=== PATIENT | male | born 1985 | race Caucasian/White ===

== ENCOUNTER 2021-11-28 20:01 | Emergency (ER) | payer BC, SELFPAY ==
[2021-11-28 20:18] VITALS: BP 141/88; PULSE 95; RESP 16; TEMP 37.2; O2SAT 95; BMI 35.3
--- NOTE | 2021-11-28 20:34 | ED_ITS ---
HPI - General Adult General Chief complaint: Neck Injury/Pain Stated complaint: Sharp neck pain Time Seen by Provider: 11/28/21 20:21 History of Present Illness HPI narrative: Pt who 10 days ago had cervical fusion of C6/7 woke from a nap with increased stiffness in both his neck and his hip bone harvest site. No fever or chills, swelling or discharge from the wounds. Pt has had no injury and has no further neurological symptoms. 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 No other symptoms. Pt has been wearing his neck collar without any problems. Pain is 3/10 which is now typical post operatively. Related Data Home Medications Medication Instructions Recorded Confirmed acetaminophen 500 mg tablet mg 11/28/21 dextroamphetamine-amphetamine ER PO 11/28/21 10 mg 24hr capsule,extend release (Adderall XR) escitalopram oxalate 20 mg tablet mg 11/28/21 methocarbamol 750 mg tablet mg 11/28/21 oxycodone 10 mg tablet mg 11/28/21 Allergies Allergy/AdvReac Type Severity Reaction Status Date / Time penicillin V Allergy Verified 11/28/21 20:22 Review of Systems Status of ROS: Reports: 10 or more systems reviewed and unremarkable except as noted in History and below [facility] Social History Smoking Status: Never smoker Do you use any of these nicotine containing products: None How often do you have a drink containing alcohol: never How often do you have six or more drinks on one occasion: Never AUDIT-C Alcohol total score: 0 Non-prescribed substance use: denies use Exam Narrative: Exam Narrative: EXAM GENERAL: Patient appears comfortable and well. Patient is wearing a [place] collar. Examination of his neck showed approximation. No obvious swelling no deformities of the neck. Exam incision site in the groin where the pelvic bone was partially harvested shows no signs of infection good wound approximation. EYES: No scleral icterus. THYROID: no thyroid nodules or thyromegaly. LYMPH: No supraclavicular or cervical lymphadenopathy. SKIN: Visible skin seen during exam normal or with benign process only. EXT: No dependent lower extremity pedal edema. HEART: Regular rate and rhythm with no murmurs, rubs, or gallops. LUNGS: Clear to auscultation bilaterally with no crackles or wheezes. ABD: Soft, non tender, non distended. PSYCH: Good eye contact, speech is not pressured. Neuro: CRANIAL NERVES 2-12 GROSSLY INTACT NO FOCAL DEFECTS Const: Vital Signs, click to edit/add: Vital Signs - 24 hr 11/28/21 20:18 Temperature 99.0 F Pulse Rate [Left P ulse Oximeter] 95 Respiratory Rate 16 Blood Pressure [Ri ght Upper Arm] 141/88 H Pulse Oximetry 95 Oxygen Delivery Me thod Room Air Course Course Hospital Course: Pt seen and examined Vital Signs Vital signs: Initial Vital Signs Temperature 99.0 F 11/28/21 20:18 Temperature Source Temporal Artery Scan 11/28/21 20:18 Pulse Rate 95 11/28/21 20:18 Pulse Rhythm 11/28/21 20:18 Pulse Strength 3+ Normal 11/28/21 20:18 Respiratory Rate 16 11/28/21 20:18 Blood Pressure 141/88 H 11/28/21 20:18 Blood Pressure Mean 105 11/28/21 20:18 Blood Pressure Position Sitting 11/28/21 20:18 Pulse Oximetry 95 11/28/21 20:18 Oxygen Delivery Method 11/28/21 20:18 Vital Signs Temperature 99.0 F 11/28/21 20:18 Pulse Rate 95 11/28/21 20:18 Respiratory Rate 16 11/28/21 20:18 Blood Pressure 141/88 H 11/28/21 20:18 Pulse Oximetry 95 11/28/21 20:18 Oxygen Delivery Method 11/28/21 20:18 Temperature 99.0 F 11/28/21 20:18 Pulse Rate 95 11/28/21 20:18 Respiratory Rate 16 11/28/21 20:18 Blood Pressure 141/88 H 11/28/21 20:18 Pulse Oximetry 95 11/28/21 20:18 Oxygen Delivery Method 11/28/21 20:18 Medical Decision Making [facility] Narrative Medical decision making narrative: Pt is a reasonably healthy 36 year old gentleman who had cervical fusion 10 days ago. Pt felt increased stiffness after his nap both in his neck and in the left groin harvest site. Pt now feeling better. No injury. No signs of infection. Pt would like to be reassured and discharged to continue his home medications. I do think that this is reasonable as his vitals and exam are unremarkable. Pt will follow up with surgeon per schedule. Discharge Plan Discharge Clinical Impression: Strain of neck muscle Patient Disposition: Home, Self-Care Condition: Stable Additional Instructions: Continue current care Follow up as needed Activity Level: No Restrictions Discharge Diet: Regular Prescriptions: No Action acetaminophen 500 mg tablet methocarbamol 750 mg tablet dextroamphetamine-amphetamine [Adderall XR] 10 mg capsule,extended release 24hr PO Label Comments: TAKE 1 CAPSULE BY MOUTH TWICE DAILY DIRECTED escitalopram oxalate 20 mg tablet Label Comments: TAKE 1 TABLET BY MOUTH EVERY DAY oxycodone 10 mg tablet Stand Alone Forms: [employer] Info Instructions
--- OUTSIDE RECORDS SUMMARY | 2021-11-28 20:59 | XMS_ITS | Clinical Summary ---
:1985 Author Organization [facility] [place] [address] Care Team Providers Name Role Phone Joya Bailey DO Primary Care Provider Allergies Active Allergy Reactions Severity Noted Date Comments Penicillins *Unknown - Childhood Rxn 08/30/2013 Medications Medication Sig Dispensed Refills Start End Status Date Date Adderall XR 10 mg Take 10 mg by 0 08/02/19 Active Extended-Release mouth two times 22 capsule daily. escitalopram oxalate Take 20 mg by 0 11/02/19 Active (LEXAPRO) 20 mg mouth once 22 tablet daily. acetaminophen Take 2 Tablets 112 Tablet 0 11/19/19 Active (TYLENOL EXTRA (1,000 mg) by 22 022 STRGTH) 500 mg mouth every 6 tabletIndications: hours for 14 S/P cervical spinal days. Max fusion acetaminophen dose: 4000mg in 24 hrs. methocarbamoL Take 1 Tablet 30 Tablet 0 11/19/19 Ac tive (ROBAXIN) 750 mg (750 mg) by 22 tabletIndications: mouth every 6 S/P cervical spinal hours if needed fusion for Muscle Spasm. oxyCODONE 10 mg Take 1 Tablet 25 Tablet 0 11/19/19 Active tabletIndications: (10 mg) by mouth 22 S/P cervical spinal every 4 hours if fusion needed for Pain. sennosides-docusate Take 1-4 Tablets 112 Tablet 0 11/19/19 Active (SENOKOT S) (8.6-50 by mouth 2 times 22 022 mg) daily if needed tabletIndications: for Constipation S/P cervical spinal for up to 14 fusion days. miscellaneous medical As directed 1 1 Each 0 11/19/19 Active supply Each. 1 television production technician 22 miscIndications: for home use for Cervical 12 months radiculopathy miscellaneous medical As directed 1 1 Each 0 11/19/19 Active supply Each. 1 toilet 22 miscIndications: tongs for home Cervical use for 12 radiculopathy months tiZANidine (ZANAFLEX) TAKE 1 TABLET BY 60 Tablet 0 08/13/19 1 Discontinued 4 mg MOUTH EVERY 6-8 (Pha rmacist tabletIndications: HOURS NEEDED change per Cervical radicular FOR MUSCLE medication pain SPASM. MAXIMUM histo ry DAILY DOSE IS 3 (E-c ancel not TABLETS sent)) escitalopram oxalate Take 10 mg by 0 07/03/1911/07 Discontinued (LEXAPRO) 10 mg mouth once (*M edication tablet daily. adjustment ) escitalopram oxalate Take 5 mg by 0 07/03/19 Discontinued (LEXAPRO) 5 mg tablet mouth one time. 01 04 2 (*Medication adjustment ) dextroamphetamine-amp Take 10 mg by 0 08/01/1910/11 02 Discontinued hetamine (ADDERALL) mouth once (*Med 10 mg tablet daily. complet e/Regim en complete/L evel of care change) methylPREDNISolone Take by mouth as 21 Tablet 0 09/16/1911/082 Discontinued (Medrol, Dave,) 4 mg instructed per (Pharmacist tabletIndications: packaging. change per Neck pain, acute med ication history (E-cancel not sent)) meloxicam 15 mg Take 1 Tablet 30 Tablet 0 10/08/19 Discontinued tabletIndications: (15 mg) by mouth 022 Cervical once daily. radiculopathy meloxicam 15 mg TAKE 1 TABLET(15 30 Tablet 0 11/12/19 Discontinued tabletIndications: MG) BY MOUTH (Pharmacist Cervical EVERY DAY change per radiculopathy medica tion history (E-cancel not sent)) Active Problems Problem Noted Date Cervical radiculopathy 11/17/2021 PTSD (post-traumatic stress disorder) 07/12/2019 Radicular pain in right arm 06/02/2018 Herniation of intervertebral disc at C5-C6 level 06/02 Attention deficit hyperactivity disorder (ADHD) 2016 Overview: Evaluation by Dr Szymanski 01/2016 Tobacco dependence 11/02/2013 Anxiety 09/14/2013 Depression 09/14/2013 Encounters Date Type Specialty Care Team Description 11/19/2021 Patient Outreach Carri Miles Primary RN Care L, RN Management; Hos pital F/U (Lace=37) 11/18/2021 Travel 11/17/2021 Anesthesia Event Lalita Cline, CELLOPHANER 11/17/2021 Surgery Colbean Marin, ACDF - ANTE RIOR Solo Medina MD CERVICAL DE COMPRESSION FUSION C6 - C7; ICBG HARVEST - ILIAC CREST BONE GRAFT HARV EST 11/17/2021 - Hospital Encounter Marissa Marin, S/P c ervical spinal fusion (Primary Dx); 11/18/2021 Solo Medina MD Cervical ra diculopathy Discharge Summary - Jocelin Downs MD - 11/18/2021 1:09 PM CDT Images from the original not e were not included. HOSPITAL DISCHARGE SUMMARY Patient Name: Aaron Salgado and Date of : 1985 Age : 36 y.o. [id number] Primary Physician: Joya Bailey DO Admission Date: 11/17/2021 Discharge Date: 11/18/2021 Mr. Aaron Butterfield is a 1 8 y.o. who underwent ACDF - ANTERIOR CERVICAL DECOMPRESSION FUSION C6 - C7; ICBG HARVEST - ILIAC CREST BONE GRAFT HARVEST on 11/17/[address] Marissa Marin, Solo Medina MD; anesthesia General, EBL (not recorded), OR time 4 Hr 41 Min 48 Sec with no immediate complications. He will be discharged from [facility] to home. PRINCIPAL DIAGNOSIS CAUSING ADMISSION: Disorder of intervertebral disc at C4-C5 level with radiculopathy [M50.121] DISCHARGE MEDICATIONS Your Home Medicines KEEP taking these medicines which have NOT changed and were NOT talked about during your hospital visit. If you have questions about these medicines, please make an appointment with your regular health care provider or specialist. Instructions Adderall XR 10 mg Extended-R elease capsule Generic drug: dextroamphetam ine-amphetamine Take 10 mg by mouth two giovanny es daily. escitalopram oxalate 20 mg t ablet Commonly known as: LEXAPRO Take 20 mg by mouth once da kanchan. FOLLOW-UP: He should return to [facility] in 6 weeks or as scheduled. Additional followup: NA BRIEF HOSPITAL COURSE: This 36 y.o. male was admitted to the fan s.p. Procedure(s): ACDF - ANTERIOR CERVICAL DEC OMPRESSION FUSION C6 - C7; ICBG HARVEST - ILIAC CREST BONE GRAFT HARVEST. The patient had a stable post operative course. Standard prophylactic antibiotics were administered for 24 hours post surgery an d the patient received DVT prophylaxis per service protocol. The patient's pain was initially controlled on intravenous pain medications and then weaned to oral medications p rior to discharge. The patie nts pain was well controlled and they met mobility expectations appropriate for the discharge location. The patient has normal bowel and bladder function. his incision is clean dry and intact. Physical Examination: Appears comfortable Alert and oriented. Appropri ate. Pleasant mood. Incision covered - clean and dry Motor exam: Grossly intact symmetrically against moderate resistance in BUE along: deltoid/bicep/wrist extensor / tricep/ intrinsics. Sensory exam: Intact to light touch symmet rically throughout the BUE. Vascular exam: Distal radial pulses intact to palpation symmetrically in BUE. No significant distal edema in BUE. Abdomen: soft, non-tender No sustained beats of ankle clonus. No calf tenderness to palpat ion. SCDs in place. PROCEDURES PERFORMED DURING HOSPITALIZATION: Procedure(s): ACDF - ANTERIOR CERVICAL DEC OMPRESSION FUSION C6 - C7; ICBG HARVEST - ILIAC CREST BONE GRAFT HARVEST COMPLICATIONS IN HOSPITAL: N A IMPORTANT PENDING TEST RESUL TS: NA PERTINENT FINDINGS/RESULTS A T DISCHARGE: NA After Discharge Orders and I nstructions Patient Instruction post bl adder scan Same Day Discharge patients If unable to urinate in 6-8 hours after discharge, return to Emergency Room with your discharge instructions. Total time spent for dischar ge on date of discharge: 10 minutes Price Downs MD [facility] [phone] 11/17/2021 Travel 11/14/2021 Telephone Jose Rafael Caruso MD [facility] 11/13/2021 Nurse/Clinic Staff Only Test ing (COVID-19 preop/) 11/13/2021 Travel 11/11/2021 Refill Joya Bailey, Refill Request (Meloxicam) DO 11/07/2021 Preop Visit John Renee, Preoperativ e Exam (11/17 - Dr. Tania LORA ) 11/07/2021 Travel 11/03/2021 Travel 09/22/2021 Procedure Only Joya Bailey, Cyst DO 09/22/2021 Travel 09/11/2021 Ancillary Procedure 09/11/2021 Travel 09/08/2021 Ancillary Procedure Canceled (Error Scheduling) 09/08/2021 Telephone Joya Bailey, Need Me ds DO 09/08/2021 Travel from Last 3 Months Immunizations Name Administration Dates Next Due Influenza, IIV4 01/27/2017, 11/13/2015, 11/02/2013 Tdap 06/06/2012 Family History Medical History Relation Name Comments Heart Disease Father 'massive heart a ttack', had motorcycle accident 2wks pr ior and rib punctured vessel in heart and formed clot per pt. Diabetes Mother Type 2 Drug Abuse Mother Other Mother RA Psychiatric illness Mother Diabetes Paternal Grandmother Hypertension Paternal Grandmother Relation Name Status Comments Father Mother Paternal Grandmother Social History Tobacco Use Types Packs/Day Years Used Date Former Smoker Cigarettes 1.5 Quit: 11/17/19 22 Smokeless Tobacco: Former User Chew Tobacco Cessation: Ready to Quit: No; Co unseling Given: Yes Alcohol Use Standard Drinks/Week Comments No 0 (1 standard drink = 0.6 oz pure alcoho l) Quit drinking spring 2016 Alcohol Habits Answer Date Recorded How often do you have a drink containing Not asked alcohol? How many drinks containing alcohol do you Not asked have on a typical day when you are drinking? How often do you have six or more drinks on Not asked one occasion? Comment: Quit drinking spring 201604/02/2020 Sex Assigned at Date Recorded Male 09/28/2019 5:54 PM CDT COVID-19 Exposure Response Date Recorded In the last 10 days, have you been in contact with No / Unsu re 11/18/2021 8:31 PM CDT someone who was confirmed or suspected to have Coronavirus/COVID-19? Obstetrics History Last Filed Vital Signs Vital Sign Reading Time Taken Comments Blood Pressure 120/75 11/18/2021 12:00 PM CDT Pulse 79 11/18/2021 12:00 PM CDT Temperature 36.8 ??C (98.2 ??F) 11/18/2021 12:00 PM CDT Respiratory Rate 18 11/18/2021 12:00 PM CDT Oxygen Saturation 100% 11/18/2021 12:00 PM CDT Inhaled Oxygen Concentration - - Weight 124.1 kg (273 lb 9.6 oz) 11/17/2021 7:04 AM CDT Height 188 cm (6' 2) 11/17/2021 7:04 AM CDT Body Mass Index 35.13 11/17/2021 7:04 AM CDT Plan of Treatment Health Maintenance Due Date Last Done Comments COVID-19 vaccine series (#1) 1985 Hepatitis C screening for age 0304/19/2001 18-79 Lipids for age 35-44 11/02/2018 11/02/2013 Influenza for age 9-49 10/09/2021 01/27/2017, 11/13/2015, 11/02/2013 Depression screening for age 12+ 04/16/2022 04/16/2021, , 07/12/2019, Additional history exists Tetanus booster 06/06/2022 06/06/2012 BMI (ht and wt on same day) for 11/07/2022 11/07/2021, 06/08, age 18+ 05/17/2018, Additional history exists Tdap Completed 06/06/2012 Medical Devices Implanted Type 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 [id number] Spine [place] Spine [id number] / Implanted: Qty: 4 on 06/29/2018 by Abelardo Faust, [facility] / Screw Tcs 3.5 X 18 N/A: Spine [id number] / Implanted: Qty: 2 on 11/17/2021 by Solo Aguila MD at [facility] / Description: SCREW TCS 3.5 X 18 Procedures Procedure Name Priority Date/Time Associated Diagnosis Comme nts XR SPINE CERVICAL 2 Routine 11/18/2021 12:52 Resu lts for VIEWS PM CDT this procedure are in the results section. HEMOGLOBIN Early AM 11/18/2021 8:43 Results for AM CDT this procedure are in the results section. XR SPINE CERVICAL 2 Routine 11/17/2021 12:25 Resu lts for VIEWS PORTABLE PM CDT this procedur e are in the results section. XR C-ARM EQUAL OR Routine 11/17/2021 12:22 Result s for GREATER 3 HR PM CDT this procedure are in the results section. ENDOTRACHEAL TUBE Routine 11/17/2021 8:26 Results for AM CDT this procedure are in the results section. ENDOTRACHEAL TUBE Routine 11/17/2021 8:26 Results for AM CDT this procedure are in the results section. ENDOTRACHEAL TUBE Routine 11/17/2021 8:26 Results for AM CDT this procedure are in the results section. [facility] KIT PR5 Routine 11/17/2021 7:21 Results for AM CDT this procedure are in the results section. [facility] DRSG PR1 Routine 11/17/2021 7:21 Results for AM CDT this procedure are in the results section. [facility] TUBING PR20 Routine 11/17/2021 7:21 Results for AM CDT this procedure are in the results section. [facility] TUBING PR1 Routine 11/17/2021 7:21 Results f or AM CDT this procedure are in the results section. [facility] ANES ARTERIAL Routine 11/17/2021 7:21 Result s for CATH FOR SAMPLE AM CDT this procedu re MONITOR TRANS are in the results section. [facility] CATH PR5 Routine 11/17/2021 7:21 Results for AM CDT this procedure are in the results section. FUSION ANTERIOR Class E Urgent 11/17/2021 7:10 Disorder of CERVICAL LEVEL 01 AM CDT intervertebral disc at C4-C5 level with radiculopathy Case Notes IOM , C-ARM, PORTABLE XRAY40 85 ZEVO VS AVIATOR Typo KeyboardsTANIUM, LAYLA: AVIATOR PLATE, MR GLUCOSE METER Timed 11/17/2021 7:07 AM Results for this CDT procedure are i n the results section. COVID 19 Routine 11/13/2021 9:38 AM Pre-op exam Results f or this CDT procedure are i n the results section. COVID 19 COLLECTION Routine 11/13/2021 9:38 AM Pre-op exam Re sults for this CDT procedure are i n the results section. CBC WITH AUTO Routine 11/07/2021 10:23 Pre-op evaluation Resul ts for this DIFFERENTIAL AM CDT procedure are i n the results section. BASIC METABOLIC PANEL Routine 11/07/2021 10:23 Pre-op evaluati on Results for this AM CDT procedure are i n the results section. PROTIME-INR Routine 11/07/2021 10:23 Pre-op evaluation Result s for this AM CDT procedure are i n the results section. APTT Routine 11/07/2021 10:23 Pre-op evaluation Result s for this AM CDT procedure are i n the results section. CBC WITH AUTO Routine 11/07/2021 10:23 Pre-op evaluation Resul ts for this DIFFERENTIAL AM CDT procedure are i n the results section. MR SPINE CERVICAL WO Routine 09/11/2021 1:33 PM Cervical R esults for this CDT radiculopathy procedure are in the results section. from Last 3 Months Results XR SPINE CERVICAL 2 VIEWS (11/18/2021 12:52 PM CDT) Anatomical Region Laterality Modality CERVICAL SPINE Digital Radiography Specimen (Source) Anatomical Collection Method Collection Time Re ceived Time Location / / Volume Laterality 11/18/2021 2:04 PM CDT Impressions 11/18/2021 2:04 PM CDT Postsurgical changes from cervical spine fusion C5-6 and C6-7. Adequate alignment. Dictated by Ming Gilbert MD @ Nov 18 ??2:04PM (Electronically Signed) ?? Narrative 11/18/2021 2:04 PM CDT For Patients: ??As a result of the Century Cures Act, medical imaging exams and procedure report s are released immediately into your [facility] medical record. ??You may view this report before your referring provider. ??If you have questions, please contact your health care provider. INDICATION: Postoperative evaluation. Anterior cervi sebastien decompression and fusion C6-C7. TECHNIQUE: Two views of the cervical spine. FINDINGS: Postsurgical change from anterior cervic al spine fusion C5-6 with intervertebral fusion device at C5-6. Intervertebral fusion device at C6-7. Loss of the mid to lower cervical lordosis likely positional and postsurgical in nature. Mild hypert rophic spurring C4. Procedure Note Ming Gilbert MD - 11/18/2021Formatti ng of this note might be different from the original. For Patients: As a result of the ntury Cures Act, medical imaging exams and procedure reports are released immediately into your electronic medical record. You may view this report before your referring provider. If you have questions, please contact [facility] care provider. INDICATION: Postoperative evaluation. Anterior cervi sebastien decompression and fusion C6-C7. TECHNIQUE: Two views of the cervical spine. FINDINGS: Postsurgical change from anterior cervic al spine fusion C5-6 with intervertebral fusion device at C5-6. Intervertebral fusion device at C6-7. Loss of the mid to lower cervical lordosis likely positional and postsurgical in nature. Mild hypertrophi c spurring C4. IMPRESSION: Postsurgical changes from cervical spine fusion C5-6 and C6-7. Adequate alignment. Dictated by Ming Gilbert MD @ Nov 18 2:04PM (Electronically Signed) Solo Marin MD GENERAL IMAGING Hemoglobin - In AM (11/18/2021 8:43 AM CDT) P athologist Signature HEMOGLOBIN 16.2 13.5 - 17.5 11/18/2021 [facility] g/dL 9:11 AM CDT LAB[facility]ATORY[facility] MCV 88 80 - 100 fL 11/18/2021 [facility] 9:11 AM CDT LAB[facility]ATORY-[facility] Specimen Anatomical Collection Method / Collection Time Recei leandra Time (Source) Location / Volume Laterality Blood BLOOD SPECIMEN / Venipuncture / 11/18/2021 8:43 2021 9:00 Unknown Unknown AM CDT AM CDT Narrative [facility] - 11/18/2021 9:11 AM CDT Call surgeon if Hemoglobin is less than 9. [facility] Performing Organization Address City/State/ZIP Code Phon e Number [facility] [phone] [place] [address] [facility]AT[facility] 2000 LABORATORY XR SPINE CERVICAL 2 VIEWS PORTABLE (11/17/2021 12:25 PM CDT) Anatomical Region Laterality Modality Spine, CERVICAL SPINE Digital Radiograph y Specimen (Source) Anatomical Collection Method Collection Time Re ceived Time Location / / Volume Laterality 11/17/2021 2:33 PM CDT Impressions 11/17/2021 2:33 PM CDT ACDF C6-7. Dictated by Aakash Lynne MD @ Nov 17 ??2:33PM (Electronically Signed) ?? Narrative 11/17/2021 2:33 PM CDT For Patients: ??As a result of the Cures Act, medical imaging exams and procedure report s are released immediately into your [employer] medical record. ??You may view this report before your referring provider. ??If you have questions, please contact your health care provider. Indication: Spinal fusion Technique: Cervical spine 2 view. Fluoroscopy time 39.8 seconds. Procedure Note Aakash Lynne MD - 11/17/2021For matting of this note might be different from the original. For Patients: As a result of the Cures Act, medical imaging exams and procedure reports are released immediately into your electronic medical record. You may view this report before your referring provider. If you have questions, please contact yo health care provider. Indication: Spinal fusion Technique: Cervical spine 2 view. Fluoroscopy time 39.8 seconds. IMPRESSION: ACDF C6-7. Dictated by Aakash Lynne MD @ Nov 17 2:33PM (Electronically Signed) Solo Marin MD GENERAL IMAGING XR C-ARM EQUAL OR GREATER 3 HR (11/17/2021 12:22 PM CDT) Anatomical Region Laterality Modality Other Specimen (Source) Anatomical Location Collection Method / Collectio n Time Received Time / Laterality Volume Narrative 11/17/2021 8:14 AM CDT 39 seconds fluoroscopy time was provided. ??See operative/procedure report for further information. Solo Marin MD FLUOROSCOPY HCHG TUBE PR1, HCH[facility] INSTRUMENT DISP PR10, HCHG STYLET PR1 (11/17/2021 8:26 AM CDT) Lalita Farrell CRNA - 8:26 AM CDT Lalita Cline CRNA ? 11/17/2021 ??8:28 AM Procedure: ETT Patient location during procedure: OR ETT Properties Mask Ventilation: oral airway and diffic ult Final Technique: video laryngoscopy Type: straight Location: oral Cuffed: yes Tube Size: 8.0 mm Stylet: yes Laryngoscope Blade: Glidescope Blade Size: 4 Cormack-Lehane Grade View: 1 Insertion Attempts: 1 Placement Verification: auscultation, en d tidal CO2 and symmetrical chest wall movement Assessment: pharynx clear, atraumatic an d dentition unchanged Secured at: 23 Measured From: gums Bite Block: soft Difficulty: 0 (not difficult) Difficulty Comment: limited neck mobilit y Electronically signed by Lalita Cline CRNA ? Abdirashid Salamanca MD ANESTHESIA PX NOTE ORDERABLE S HCHG CATH PR5, HCHG ANES ARTERIAL CATH FOR SAMPLE MONITOR TRANS, HCHG TUBING PR1, HCHG TUBING PR20, HCHG DRSG PR1, HCHG KIT PR5 (11/17/2021 7:21 AM CDT) Abdirashid Bowen MD - 11/17/2021 7:21 AM CDT Abdirashid Salamanca MD ? 11/17/2021 ??8:05 AM Arterial Line Patient location during procedure: pre-o p Start time: 11/17/2021 7:21 AM End time: 11/17/2021 7:28 AM Indications: lab sampling and monitoring Requesting provider: Vinh Aguila MD Staffing Preanesthetic Checklist Completed: patient identified, risks and benefits discussed, consent obtained and timeout performed Arterial Line Patient position: supine. Comment:. Laterality: left Site: radial Local Anesthetic: lidocaine 1%. Needle localization (ultrasound): no pat hologic findings, selected vessel patent, anatomically normal, potential a ccess sites evaluated and needle visualized entering selected vessel. Securement/dressing: dressing applied. C omment: Needle Catheter size: 20 G. Comment:. Catheter length: 4.5 cm. Comment: Events: no complications. Electronically signed by Abdirashid Salamanca MD ? Abdirashid Salamanca MD ANESTHESIA PX NOTE ORDERABLE S GLUCOSE METER (11/17/2021 7:07 AM CDT) P athologist Signature GLUCOSE METER 91 65 - 100 11/17/2021 [facility] mg/dL 7:08 AM CDT [facility]ATORY[facility] Specimen Anatomical Collection Method Collection Time Receive d Time (Source) Location / / Volume Laterality Blood BLOOD SPECIMEN / 11/17/2021 7:07 AM 11/17 7:08 Unknown CDT AM CDT Solo Marin MD CHEMISTRY Performing Organization Address City/State/ZIP Code Phon e Number [id number] [address] [place] [address] LAB[facility]ATORY-[facility] 2000 LABORATORY COVID 19 (11/13/2021 9:38 AM CDT) Analysis Performed At Patho logist Time Signature COVID 19 Negative Negative 11/14/2021 [facility] 1:08 PM CDT [facility] Comment: All PCR tests are subject to fa lse negative result due to variability in viral load and collection technique. A n egative result does not rule out a SARS-CoV-2 infection. Clinical correlation required . Specimen Anatomical Location / Collection Method Collection Giovanny e Received Time (Source) Laterality / Volume Other SPECIMEN FROM Non-Blood / 11/13/2021 9:38 11/14/2021 6:17 NASOPHARYNGEAL Unknown AM CDT AM CDT STRUCTURE / Unknown Narrative [facility] - 11/14/2021 1:08 PM CDT This test has been authorized by FDA und er an Emergency Use Authorization (EUA). This test is only authorized for the duration of time the declaration that circumstances exist justifying the authorization of th e emergency use of in vitro diagnostic tests for detection of SARS-CoV-2 virus and/or diagnosis of COVID-19 infection under section 564(b)(1) of the Act, 21 U.S.C. 360bbb-3(b)(1), unless the authorization is terminated or revoked sooner. Solo Marin MD MICROBIOLOGY Performing Organization Address City/[facility] Phon e Number [facility] [address] [place], [place] [address] [address] LAB[facility]ATORY-[facility] 2000 LABORATORY COVID 19 COLLECTION (11/13/2021 9:38 AM CDT) [facility] Method Time Signature TESTING [facility] 11/14/2021 [facility] Laboratory 6:17 AM CDT LABORATORY-[facility] Comment: Specimen submitted to [facility] for testing. Specimen Anatomical Location / Collection Method Collection Giovanny e Received Time (Source) Laterality / Volume Other SPECIMEN FROM Non-Blood / 11/13/2021 9:38 11/13/2021 NASOPHARYNGEAL Unknown AM CDT 10:05 AM CDT STRUCTURE / Unknown Solo Marin MD SEND OUTS Performing Organization Address City/[facility] Phon e Number [facility] [address] [place] [address] LAB[facility]ATORY-[facility] 1999 LABORATORY (ABNORMAL) CBC WITH AUTO DIFFERENTIAL (11/07/2021 10:23 AM CDT) [facility] gist Method Time Signature WHITE BLOOD 12.4 (H) 4.5 - 11/07/2021 [facility] COUNT 11.0 10:[address] [facility]/ CLINIC mm RED BLOOD COUNT 5.64 4.30 - 11/07/2021 [facility] 5.90 10:39 AM T [facility] mm CLINIC HEMOGLOBIN 17.7 (H) 13.5 - 11/07/2021 [facility] 17.5 g/dL 10:39 AM T [facility] HEMATOCRIT 49.3 37.0 - 11/07/2021 [facility] 53.0 % 10:39 AM T [facility] MCV 87 80 - 100 [facility] f[facility] 10:39 AM [facility] MCH 31.4 26.0 - 11/07/2021 [facility] 34.0 pg 10:39 AM [facility] MCHC 35.9 32.0 - 11/07/2021 [facility] 36.0 g/dL 10:39 AM [facility] RDW 14.4 11.5 - 11/07/2021 [facility] 15.5 % 10:39 AM [facility] PLATELET COUNT 199 140 - 440 11/07/20[facility] thou/cu 10:39 AM [facility] MPV 10.5 6.5 - 11/07/2021 [facility] 11.0 fL 10:39 [facility] % NEUT 67.2 % 11/07/2021 [facility] 10:39 AM T [facility] % LYMPH 27.0 % 11/07/2021 [facility] 10:39 AM [facility] % MONO 4.0 % 11/07/2021 [facility] 10:39 [facility] % EOS 1.6 % 11/07/2021 [facility] 10:39 AM [facility] % BASO 0.2 % 11/07/2021 [facility] 10:39 AM [facility] ABSOLUTE 8.4 (H) 1.7 - 7.0 11/07/2021 [facility] NEUTROPHILS thou/cu 10:39 AM CDT [facility] CLINIC ABSOLUTE 3.4 (H) 0.9 - 2.9 11/07/2021 [facility] LYMPHOCYTES thou/cu 10:39 AM CDT [facility] CLINIC ABSOLUTE 0.5 <0.9 11/07/2021 [facility] MONOCYTES thou/cu 10:39 AM CDT [facility] ABSOLUTE 0.2 <0.5 11/07/2021 [facility] EOSINOPHILS thou/cu 10:39 AM CDT [facility] CLINIC ABSOLUTE 0.0 <0.3 11/07/2021 [facility] BASOPHILS thou/cu 10:39 AM CDT [facility] CLINIC Specimen Anatomical Collection Method / Collection Time Recei leandra Time (Source) Location / Volume Laterality Blood BLOOD SPECIMEN / Venipuncture / 11/07/2021 10:23 11/07 Unknown Unknown AM CDT 10:24 AM CDT John Renee DO HEMATOLOGY Performing Organization Address City/State/ZIP Code Phon e Number [facility] [address] [place] [address] APTT (11/07/2021 10:23 AM CDT) P athologist Signature APTT 29 24 - 33 sec 11/07/2021 [facility] 6:25 PM CDT LABORATORY[facility] Specimen Anatomical Collection Method / Collection Time Recei leandra Time (Source) Location / Volume Laterality Blood BLOOD SPECIMEN / Venipuncture / 11/07/2021 10:23 11/07 Unknown Unknown AM CDT 10:24 AM CDT Narrative [facility] - 11/07/2021 6:25 PM CDT Therapeutic Range: 70-95 seconds John Renee DO HEMATOLOGY Performing Organization Address City/State/ZIP Code Phon e Number [facility] [address] [place] [address] LABORATORY-[facility] 2000 LABORATORY PROTIME-INR (11/07/2021 10:23 AM CDT) P athologist Signature INR 1.0 <1.3 11/07/2021 [facility] 6:24 PM CDT [facility] PROTIME 13.3 12.0 - 13.8 11/07/2021 [facility] sec 6:24 PM CDT [facility] Specimen Anatomical Collection Method / Collection Time Recei leandra Time (Source) Location / Volume Laterality Blood BLOOD SPECIMEN / Venipuncture / 11/07/2021 10:23 11/07 Unknown Unknown AM CDT 10:24 AM CDT Narrative [facility] 11/07/2021 6:24 PM CDT ?Therapeutic Range 2.0-3.0 for most anticoagulated patients 2.5-3.5 or 4.0 for high risk patients The INR is only used for patients on sta ble oral anticoagulant therapy. It makes no significant contribution to the diagnosis or treatment of patients whose Protime is prolonged f or other reasons. INR results are increased when heparin l evels exceed 1.0 U/mL, which corresponds to an aPTT >125 seconds if the patient is on UFH. John Renee DO HEMATOLOGY Performing Organization Address City/State/ZIP Code Phon e Number [facility] [address] [place] [address] LABORATORY BASIC METABOLIC PANEL (11/07/2021 10:23 AM CDT) P athologist Signature SODIUM 138 135 - 145 11/07/2021 [facility] mmol/L 8:05 PM CDT LABORATORY-[facility] POTASSIUM 4.5 3.5 - 5.0 11/07/2021 [facility] mmol/L 8:05 PM CDT LABORATORY-[facility] CHLORIDE 106 98 - 110 11/07/2021 [facility] mmol/L 8:05 PM CDT LABORATORY-[facility] CO2,TOTAL 22 21 - 31 11/07/2021 [facility] mmol/L 8:05 PM CDT [facility]ATORY[facility] ANION GAP 10 5 - 18 11/07/2021 [facility] 8:05 PM CDT LABORATORY[facility] GLUCOSE 88 65 - 100 11/07/2021 [facility] mg/dL 8:05 PM CDT LABORATORY-[facility] CALCIUM 9.5 8.5 - 10.5 11/07/2021 [facility] mg/dL 8:05 PM CDT LABORATORY-[facility] BUN 11 8 - 25 11/07/2021 [facility] mg/dL 8:05 PM CDT [facility]ORY[facility] CREATININE 0.87 0.72 - 11/07/2021 [facility] 1.25 mg/dL 8:05 PM CDT LAB[facility]ATORY-[facility] BUN/CREAT RATIO 13 10 - 20 11/07/2021 [facility] 8:05 PM CDT LAB[facility]ATORY[facility] eGFR >90 >90 11/07/2021 [facility] [place] mL/min/1.7 8:05 PM CDT LABORATORY-CENT 3m2 RAL LABORATORY Comment: As of 2021, eGFR is calcu lated by the CKD-EPI creatinine equation without race adjustment. eGFR can be inf luenced by muscle mass, exercise, and diet. The reported eGFR is an estimation only and is only applicable if the renal function is stable. Specimen Anatomical Collection Method / Collection Time Recei leandra Time (Source) Location / Volume Laterality Blood BLOOD SPECIMEN / Venipuncture / 11/07/2021 10:23 11/07 Unknown Unknown AM CDT 10:24 AM CDT John Renee DO CHEMISTRY Performing Organization Address City/State/ZIP Code Phon e Number [facility] [place] [address] [place] [address] LABORATORY-[facility]EN[facility] 2000 LABORATORY MR SPINE CERVICAL WO (09/11/2021 1:33 PM CDT) Anatomical Region Laterality Modality Spine, CERVICAL SPINE Magnetic Resonance Specimen (Source) Anatomical Location Collection Method / Collectio n Time Received Time / Laterality Volume Narrative 09/11/2021 2:46 PM CDT For Patients: As a result of the Cures Act, medical imaging exams and procedure reports are released immediately into your electronic medical record. ??You may view this repo rt before your referring provider. ?? If you have questions, please contact [facility] care provider. Indication: Cervical spine pain and upper extremity paresthesias. Technique: MRI of the cervical spine was performed without the use of intravenous contrast. Comparison: Cervical spine radiographs 06/30/2018. [facility] cervical spine 05/23/2018. Findings: The cervical vertebral body heights are maintained without fracture. Stable chronic wedging deformity of T1. Status post ACDF C5-6. Mild reversal to the upper cervical lordosis. Mild disc height loss and desiccation at the C4-5 and C6-7 levels. No abnormal cord signal. C2-3: No spinal canal or neural foramina l narrowing. C3-4: No spinal canal or neural foramina l narrowing. C4-5: Interval progression of right suba rticular disc protrusion with mild indentation upon the right hemicord. Mod erate right neural foraminal narrowing secondary to uncovertebral zaria nt and facet hypertrophy. Left neural foramina demonstrates mild narrow ing. C5-6: Postsurgical changes. Improved pat ency of the spinal canal and right subarticular recess. There is a residual /recurrent right foraminal disc protrusion with moderate to severe right neural foraminal narrowing. Mild left neural foraminal narrowing. C6-7: Moderate disc height loss and jose r ccation. Disc degeneration with disc bulge can attributing to progressed moderate spinal canal narrowing. Moderate right and mild left neural fora coleman narrowing secondary to uncovertebral joint and facet hypertroph y. C7-T1: No spinal canal or neural foramin al narrowing. Impression: 1. Status post ACDF C5-6. 2. At C4-5, progression of right subarti cular disc protrusion with mild indentation upon the right ashley cord. Mo derate right neural foraminal narrowing. 3. At C5-6, interval improved patency of the spinal canal. Residual/recurrent right foraminal disc protrusion with moderate to severe right neural foraminal narrowing. 4. At C6-7, progressed degenerative barrios ge with moderate spinal canal, moderate right and mild left neural fora coleman narrowing. Dictated by Bert Johnson MD @ 022 1:50:27 PM Signed by: Bert Johnson MD @ 2 1:50:27 PM (Electronic Signature) Joya Bailey DO MR from Last 3 Months Insurance Payer Benefit Plan / Subscriber ID Effective Dates Phone Addre ss Type Group BLUE [employer]OSS [place] BLUE ADVANTAGE [id number] 2018-Present [address] [address] [facility] [address] Advance Directives Latest Code Status on File Code Status Date Activated Date Inactivated Comments Full Code 11/17/2021 2:32 PM 11/18/2021 4:36 PM Code Status Discussion: Discussed Full Code 06/29/2018 6:20 PM 06/30/2018 12:34 PM Code Status Discussion: Per Advance Care Plan Care Teams Dimensional Integration Engineer Relationship Specialty Start Date End Date Joya Bailey DO PCP - General Family Practice 10/04/13 [address] [place] [address]
== END 2021-11-28 20:59 | disposition home or self-care (01) ==
LOC: ED 20:57
PROVIDERS: Emergency Provider Internal Medicine; PCP Family Medicine
DX: G89.18 Other acute postprocedural pain (principal)
CPT/HCPCS: 99282; 99283

== ENCOUNTER 2022-01-26 16:05 | Emergency (ER) | payer OTHER, BC, SELFPAY ==
[2022-01-26 16:20] VITALS: BP 163/104; PULSE 86; RESP 18; TEMP 36.6; O2SAT 97; BMI 36.3
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
[2022-01-26 16:56] LABS: Carboxyhemoglobin* 8.7 % (0.0-5.0)
[2022-01-26 16:57] LABS: Basophils Absolute Auto 0.01 K/uL (0.00-0.30); Basophils Percent Auto 0.1 % (0.0-3.0); Eosinophils Absolute Auto 0.17 K/uL (0.00-0.50); Eosinophils Percent Auto 1.8 % (0.0-7.0); Hematocrit 46.1 % (37.0-53.0); Hemoglobin* 16.1 gm/dL (13.5-17.5); Immature Granulocytes Abs Auto 0.02 K/uL (0.00-0.30); Immature Granulocytes Pct Auto 0.2 %; Lymphocytes Absolute Auto 2.98 K/uL (0.90-2.90); Lymphocytes Percent Auto 31.9 % (20-44); Mean Corpuscular HGB Conc 35 gm/dL (32-36); Mean Corpuscular Hemoglobin 31 pg (26-34); Mean Corpuscular Volume 88 fL (80-100); Monocytes Percent Auto 4.4 % (0.0-11.0); Neutrophils Absolute Auto 5.74 K/uL (1.7-7.0); Neutrophils Percent Auto 61.6 % (42.0-72.0); Platelet Count* 191 K/uL (140-440); Red Blood Count 5.26 m/uL (4.30-5.90); White Blood Count* 9.33 K/uL (4.50-11.00)
[2022-01-26 17:00] LABS: Slide Review Reflex No
[2022-01-26 17:13] LABS: Albumin* 4.5 g/dL (3.3-5.0)
[2022-01-26 17:14] LABS: Chloride* 106 mmol/L (96-114); Potassium* 3.7 mmol/L (3.6-5.1); Sodium* 138 mmol/L (135-149)
[2022-01-26 17:16] LABS: Alkaline Phosphatase* 95 U/L (40-150); Aspartate Amino Transferase* 24 U/L (12-35); Bilirubin Direct* 0.2 mg/dL (0.0-0.5); Bilirubin Total* 0.4 mg/dL (0.1-1.5); Total Protein* 7.1 g/dL (6.0-8.3)
[2022-01-26 17:17] LABS: Alanine Aminotransferase* 30 U/L (4-50); Creatinine* 0.8 mg/dL (0.5-1.5); Est. Creatinine Clearance* 141.49; Estimated Glomerular Filt Rate 116 ml/min
[2022-01-26 17:18] LABS: Blood Urea Nitrogen* 10 mg/dL (5-24); Calcium* 9.1 mg/dL (8.4-10.6); Carbon Dioxide* 26 mmol/L (20-32); Glucose* 86 mg/dL (60-115)
[2022-01-26 17:26] LABS: C Reactive Protein* < 0.5 mg/dL (0.5-1.0)
[2022-01-26 17:51] LABS: Barbiturate Screen Urine Negative (Negative); Benzodiazepines Screen Urine Negative (Negative); Cannabinoid Screen Urine Negative (Negative); Cocaine Screen Urine Negative (Negative); Methadone Screen Urine Negative (Negative); Methamphetamines Screen Urine Negative (Negative); Opiate Screen Urine Negative (Negative); Oxycodone Screen Urine Negative (Negative); Phencyclidine Screen Urine Negative (Negative); Tricyclic Antidepressant Urine Negative (Negative)
[2022-01-26 17:53] LABS: Amphetamine Screen Urine POSITIVE (Negative)
--- NOTE | 2022-01-26 17:55 | ED.NURSE ---
positive meth in urine tox screen. Dr Mehta aware
== END 2022-01-26 17:46 | disposition home or self-care (01) ==
PROVIDERS: Emergency Provider Family Medicine; PCP Family Medicine
DX: T59.894A Toxic effect of other specified gases, fumes and vapors, undetermined, initial encounter (principal); Y99.0 Civilian activity done for income or pay
CPT/HCPCS: 36415; 80048; 80076; 80306; 82375; 85025; 86140; 93005; 99284

== ENCOUNTER 2024-03-23 12:07 | Emergency (ER) | payer OTHER, SELFPAY ==
[2024-03-23 12:25] VITALS: BP 160/122; PULSE 119; RESP 20; TEMP 36.4; O2SAT 95; BMI 33.0
--- NOTE | 2024-03-23 13:16 | ED.PSYCH ---
HPI - Psych General Time Seen by Provider: 13:16 Date Seen: 03/23/24 Chief Complaint: Psychiatric Problem/Disorder Stated Complaint: Mental Health Time Seen by Provider: 03/23/24 13:10 Source: patient, RN notes reviewed and police Mode of arrival: ambulatory Limitations: no limitations History of Present Illness HPI Narrative: Of was asked by nursing staff to see this patient. We had high volumes in the ED, patient did admittedly wait to be seen. He was brought in by police on a transport hold after his reportedly called 911. Patient was holding in on loaded gun to his head and told his I do not want to be here. He and his for having significant marital discord. He reported he does not feel loved by his . He told staff that she spent all his money. He has not seen his therapist for 6 months because he does not have insurance. Nursing staff had me see him quickly as he was threatening to leave. He states he is sad, just wants to go home and get in his bed, things are not going to be better until he can go home. He has not been hospitalized for his mental health. He is on mirtazapine and citalopram, is reportedly taking his medicines. He states he is not suicidal. He states his has the kramer to the gun safe. He did reportedly put 2 holes in sheet rock wall at home with his forehead out of frustration. He denies any acute pain, has not been sick with anything. He denies suicidality, homicidality. Have reviewed with him that we really need him to meet with telehealth, need to check labs. He states he has had no alcohol, no illicit substances. He states he was phone numbers of people to call to help him. Related Data Home Medications ?Medication ?Instructions ?Recorded ?Confirmed acetaminophen 500 mg tablet mg 11/28/21 dextroamphetamine-amphetamine ER PO 11/28/21 10 mg 24hr capsule,extend release (Adderall XR) escitalopram oxalate 20 mg tablet mg 11/28/21 methocarbamol 750 mg tablet mg 11/28/21 oxycodone 10 mg tablet mg 11/28/21 Allergies Allergy/AdvReac Type Severity Reaction Status Date / Time penicillin V Allergy Verified 01/26/22 16:20 Review of Systems Status of ROS: Reports: 6 or more systems reviewed and unremarkable except as noted in History and below PFSH PFS Social History Smoking Status: Current every day smoker What tobacco products do you use: cigarettes Do you use any of these nicotine containing products: None Second hand tobacco smoke exposure: Yes How often do you have a drink containing alcohol: monthly or less How often do you have six or more drinks on one occasion: Less than monthly AUDIT-C Alcohol total score: 2 Non-prescribed substance use: denies use service: No Exam Const: Vital Signs, click to edit/add: Vital Signs - 24 hr 03/23/24 12:25 Temperature 97.6 F Pulse Rate [Right Pulse Oximeter] 119 H Respiratory Rate 20 Blood Pressure [Ri ght Upper Arm] 160/122 H Pulse Oximetry 95 Oxygen Delivery Me thod Room Air Patient is tearful, poor eye contact. Has superficial abrasions over his forehead but no ecchymosis. Face atraumatic, speaking in complete sentences. Lungs are clear, good air entry, no tachypnea. CV regular rate and rhythm, no murmur at this time. He is up ambulatory in the ED at times, gait is normal. Moving extremities. He has some tattoos, no cut hudson, no superficial wounds concerning for self-harm. Documenting provider has reviewed patient's vital signs: yes Course Course ED Course: Reviewed with Harpreet that my goal is to get him home if it is appropriate. I am charged with his safety and making sure that he is safe to go home. We will do the telehealth visit. Have put in orders for appropriate labs. Reevaluation(s) Time of Reevaluation #1: 13:53 Reevaluation #1: Quick have spoken with Joya from [facility], she feels he is low risk. He admitted that this was attention seeking in a fight with his . They have not been communicating well. He had a therapist, lost his insurance 6 months ago but does intend on getting back to this therapist. He thought it was helpful. He has no intent to harm himself or others. He did contract for safety. Will allow discharge at his request and per recommendations of [facility]. I do agree with this assessment. Vital Signs Vital signs: Initial Vital Signs Temperature 97.6 F 03/23/24 12:25 Temperature Source Temporal Artery Scan 03/23/24 12:25 Pulse Rate 119 H 03/23/24 12:25 Pulse Rhythm Regular 03/23/24 12:25 Respiratory Rate 20 03/23/24 12:25 Blood Pressure 160/122 H 03/23/24 12:25 Blood Pressure Mean 134 H 03/23/24 12:25 Blood Pressure Position Sitting 03/23/24 12:25 Pulse Oximetry 95 03/23/24 12:25 Oxygen Delivery Method Room Air 03/23/24 12:25 Vital Signs Temperature 97.6 F 03/23/24 12:25 Pulse Rate 119 H 03/23/24 12:25 Respiratory Rate 20 03/23/24 12:25 Blood Pressure 160/122 H 03/23/24 12:25 Pulse Oximetry 95 03/23/24 12:25 Oxygen Delivery Method Room Air 03/23/24 12:25 Temperature 97.6 F 03/23/24 12:25 Pulse Rate 119 H 03/23/24 12:25 Respiratory Rate 20 03/23/24 12:25 Blood Pressure 160/122 H 03/23/24 12:25 Pulse Oximetry 95 03/23/24 12:25 Oxygen Delivery Method Room Air 03/23/24 12:25 MDM - Psych Lab Data Attestation: I reviewed the patient's lab results. Lab results narrative: Patient is on stimulant medication. Labs: Lab Results 03/23/24 03/23/24 03/23/24 Range/Units 13:00 13:22 13:24 WBC 11.11 H (4.50-11.00) K/uL RBC 5.54 (4.30-5.90) m/uL Hgb 16.9 (13.5-17.5) gm/dL Hct 48.8 (37.0-53.0) % MCV 88 (80-100) fL MCH 31 (26-34) pg MCHC 35 (32-36) gm/dL RDW Coeff of Erica 13.0 (11.5-15.5) % Plt Count 178 (140-440) K/uL Neut % (Auto) 75.7 H (42.0-72.0) % Lymph % (Auto) 19.2 L (20-44) % Amador % (Auto) 3.7 (0.0-11.0) % Eos % (Auto) 1.0 (0.0-7.0) % Baso % (Auto) 0.1 (0.0-3.0) % Neut # (Auto) 8.40 H (1.7-7.0) K/uL Lymph # (Auto) 2.10 (0.90-2.90) K/uL Amador # (Auto) 0.40 (0.00-0.90) K/UL Eos # (Auto) 0.10 (0.00-0.50) K/uL Baso # (Auto) 0.00 (0.00-0.30) K/uL Abs Immat Gran (auto) 0.00 (0.00-0.30) K/uL Imm/Tot Granulo (auto) 0.3 % Sodium 139 (135-149) mmol/L Potassium 5.0 (3.6-5.1) mmol/L Chloride 104 (96-114) mmol/L Carbon Dioxide 27 (20-32) mmol/L Anion Gap 8 (7-15) mEq/L BUN 11 (5-24) mg/dL Creatinine 0.8 (0.5-1.5) mg/dL Estimated Creat Clear 138.72 Estimated GFR 115 ml/min Glucose 97 (60-115) mg/dL Calcium 9.6 (8.4-10.6) mg/dL Total Bilirubin 0.6 (0.1-1.5) mg/dL AST 28 (12-35) U/L ALT 41 (4-50) U/L Alkaline Phosphatase 86 (40-150) U/L Total Protein 7.2 (6.0-8.3) g/dL Albumin 4.7 (3.3-5.0) g/dL Salicylates < 1.0 L (1.0-10) mg/dL Urine Opiates Screen Negative (Negative) Ur Oxycodone Screen Negative (Negative) Urine Methadone Screen Negative (Negative) Acetaminophen < 10.0 L (10.0-30.0) ug/mL Ur Barbiturates Screen Negative (Negative) U Tricyclic Antidepress Negative (Negative) Ur Phencyclidine Scrn Negative (Negative) Ur Amphetamines Screen POSITIVE A (Negative) U Methamphetamines Scrn Negative (Negative) U Benzodiazepines Scrn Negative (Negative) Urine Cocaine Screen Negative (Negative) U Marijuana (THC) Screen Negative (Negative) Ur Drug Screen Comment See Note Ethyl Alcohol < 0.00 L (0.01-0.03) % Lab Acknowledgement Test Added Discharge Plan Discharge Clinical Impression: Suicide gesture Qualifiers: Encounter type: initial encounter Qualified Code(s): X83.8XXA - Intentional self-harm by other specified means, initial encounter Patient Disposition: Home, Self-Care Condition: Stable Instructions: Suicide Prevention (ED) Additional Instructions: Stay on your current medications. Highly encourage you to follow-up with your therapist, please call. Please seek re-evaluation if you feel your mood is worsening or if you are contemplating suicide. Try to avoid any conflict with your at this time, is not likely to be helpful and may just cause you more undue stress. Activity Level: No Restrictions Prescriptions: No Action acetaminophen 500 mg tablet methocarbamol 750 mg tablet dextroamphetamine-amphetamine [Adderall XR] 10 mg capsule,extended release 24hr PO Patient Comments: TAKE 1 CAPSULE BY MOUTH TWICE DAILY DIRECTED escitalopram oxalate 20 mg tablet Patient Comments: TAKE 1 TABLET BY MOUTH EVERY DAY oxycodone 10 mg tablet Follow Up/Referrals: Joya Bailey DO [Primary Care Provider] - Stand Alone Forms: PrivacyProtector Info Instructions
[2024-03-23 13:33] LABS: Basophils Percent Auto 0.1 % (0.0-3.0); Hematocrit 48.8 % (37.0-53.0); Hemoglobin* 16.9 gm/dL (13.5-17.5); Immature Granulocytes Pct Auto 0.3 %; Lymphocytes Percent Auto 19.2 % (20-44); Mean Corpuscular HGB Conc 35 gm/dL (32-36); Mean Corpuscular Hemoglobin 31 pg (26-34); Mean Corpuscular Volume 88 fL (80-100); Monocytes Percent Auto 3.7 % (0.0-11.0); Neutrophils Percent Auto 75.7 % (42.0-72.0); Platelet Count* 178 K/uL (140-440); Red Blood Count 5.54 m/uL (4.30-5.90); White Blood Count* 11.11 K/uL (4.50-11.00)
[2024-03-23 13:34] LABS: Slide Review Reflex No
[2024-03-23 13:40] LABS: Amphetamine Screen Urine POSITIVE (Negative); Barbiturate Screen Urine Negative (Negative); Benzodiazepines Screen Urine Negative (Negative); Cannabinoid Screen Urine Negative (Negative); Cocaine Screen Urine Negative (Negative); Methadone Screen Urine Negative (Negative); Methamphetamines Screen Urine Negative (Negative); Opiate Screen Urine Negative (Negative); Oxycodone Screen Urine Negative (Negative); Phencyclidine Screen Urine Negative (Negative); Tricyclic Antidepressant Urine Negative (Negative)
[2024-03-23 13:46] LABS: Albumin* 4.7 g/dL (3.3-5.0)
[2024-03-23 13:47] LABS: Chloride* 104 mmol/L (96-114); Sodium* 139 mmol/L (135-149)
[2024-03-23 13:49] LABS: Alanine Aminotransferase* 41 U/L (4-50); Alkaline Phosphatase* 86 U/L (40-150); Anion Gap 8 mEq/L (7-15); Aspartate Amino Transferase* 28 U/L (12-35); Bilirubin Total* 0.6 mg/dL (0.1-1.5); Carbon Dioxide* 27 mmol/L (20-32); Creatinine* 0.8 mg/dL (0.5-1.5); Est. Creatinine Clearance* 138.72; Estimated Glomerular Filt Rate 115 ml/min; Total Protein* 7.2 g/dL (6.0-8.3)
[2024-03-23 13:50] LABS: Blood Urea Nitrogen* 11 mg/dL (5-24); Calcium* 9.6 mg/dL (8.4-10.6); Glucose* 97 mg/dL (60-115)
[2024-03-23 13:54] LABS: Acetaminophen* < 10.0 ug/mL (10.0-30.0); Ethanol* < 0.00 % (0.01-0.03); Salicylate* < 1.0 mg/dL (1.0-10)
== END 2024-03-23 14:47 | disposition home or self-care (01) ==
PROVIDERS: Emergency Provider Family Medicine; PCP Family Medicine
DX: R45.851 Suicidal ideations (principal); X83.8XXA Intentional self-harm by other specified means, initial encounter
CPT/HCPCS: 36415; 80053; 80143; 80179; 80306; 82077; 84443; 85025; 99284